=== PATIENT | female | born 1965 | race African-American/Black ===

== ENCOUNTER 2019-02-06 18:59 | Inpatient (IN) | payer OTHER ==
[~2019-02-06] VITALS: Ht 165.1 cm; Wt 84.9 kg
[2019-02-06] MEDS ORDERED: IV NORMAL SALINE 1000ML BAG 1,000 ML IV ONE (19:30)
[2019-02-06 19:33] LABS: BASO % 0 % (0-3); EOS % 0 % (0-3); HEMATOCRIT 39.2 % (36.0-47.0); HEMOGLOBIN 13.2 g/dL (12.0-15.5); LYMPH # 1.8 x10^3/uL (1.0-4.8); LYMPH % 25 % (24-48); MEAN CORPUSCULAR HEMOGLOBIN 32 pg (25-35); MEAN CORPUSCULAR HGB CONC 34 g/dL (31-37); MEAN CORPUSCULAR VOLUME 94 fL (79-100); MONO # 0.5 x10^3/uL (0.0-1.1); MONO % 7 % (0-9); NEUT # 4.8 x10^3uL (1.8-7.7); NEUT % 67 % (31-73); PLATELET COUNT 184 x10^3/uL (140-400); RED BLOOD COUNT 4.16 x10^6/uL (3.50-5.40); WHITE BLOOD COUNT 7.1 x10^3/uL (4.0-11.0)
[2019-02-06 19:59] LABS: ALBUMIN 2.7 g/dL (3.4-5.0); ALBUMIN/GLOBULIN RATIO 0.8 (1.0-1.7); CALCIUM 9.1 mg/dL (8.5-10.1); CREATININE 0.9 mg/dL (0.6-1.0); MAGNESIUM 1.2 mg/dL (1.8-2.4); TOTAL BILIRUBIN 0.7 mg/dL (0.2-1.0); TOTAL PROTEIN 6.2 g/dL (6.4-8.2)
[2019-02-06 20:01] LABS: POTASSIUM 2.8 mmol/L (3.5-5.1)
--- NOTE | 2019-02-06 20:18 | PHYS DOC ---
Past Medical History Past Medical History: No Pertinent History Past Surgical History: , Gastric Bypass, Other Additional Past Surgical Histo: left knee Alcohol Use: Occasionally Drug Use: None Adult General Chief Complaint Chief Complaint: DIZZY/LIGHT HEADED HPI HPI Patient is a 54 year old female who presents with a near syncopal event. Per patient she was at work tonight when she started to get lightheaded, dizzy, and the room was spinning. Patient denies ever completely passing out, but she felt like she was going to. She had one similar episode on Thursday as well. She denies any chest pain or shortness of breath before or after the event. Patient states she currently feels like she is in a daze, but denies any pain. Review of Systems Review of Systems Constitutional: Denies fever or chills Eyes: Denies change in visual acuity, redness HENT: Denies nasal congestion or sore throat Respiratory: Denies cough or shortness of breath Cardiovascular: Denies chest pain or palpitations GI: Denies abdominal pain, nausea, vomiting : Denies dysuria or hematuria Musculoskeletal: Denies back pain or joint pain Integument: Denies rash or skin lesions Neurologic: Reports lightheadedness, dizziness, and generalized weakness. Denies any focal weakness. Complete systems were reviewed and found to be within normal limits, except as documented in this note. Current Medications Current Medications Current Medications Medications (Trade) Dose Ordered Sig/Lupis Start Time Stop Time Status Last Admin Dose Admin Sodium Chloride 1,000 ml @ 1,000 mls/hr 1X ONCE 02/06/19 19:30 02/06/19 20:29 DC 02/06/19 20:10 1,000 MLS/HR Allergies Allergies Allergies Coded Allergies Type Severity Reaction Last Updated Verified Penicillins Allergy Intermediate rash 02/06/19 Yes Physical Exam Physical Exam Constitutional: Well developed, well nourished HENT: Normocephalic, atraumatic Eyes: EOMI, conjunctiva normal Neck: Normal range of motion, no tenderness, supple, no stridor. Cardiovascular:Heart rate regular rhythm, no murmur Lungs & Thorax: Bilateral breath sounds clear to auscultation Abdomen: Soft, no tenderness, Skin: Warm, dry, no erythema, no rash. Back: No tenderness, no CVA tenderness. Extremities: No clubbing, ROM intact, no edema. Neurologic: Alert and oriented X 3, normal motor function, normal sensory function, no focal deficits noted, CN II through XII grossly intact bilaterally Psychologic: Affect normal, mood normal. Current Patient Data Vital Signs Vital Signs Date Time Temp Pulse Resp B/P (MAP) Pulse Ox O2 Delivery O2 Flow Rate FiO2 02/06/19 20:03 72 16 98 02/06/19 18:59 98.2 111/70 (84) Room Air 98.2 Lab Values Laboratory Tests Test 02/06/19 19:10 White Blood Count 7.1 x10^3/uL (4.0-11.0) Red Blood Count 4.16 x10^6/uL (3.50-5.40) Hemoglobin 13.2 g/dL (12.0-15.5) Hematocrit 39.2 % (36.0-47.0) Mean Corpuscular Volume 94 fL (79-100) Mean Corpuscular Hemoglobin 32 pg (25-35) Mean Corpuscular Hemoglobin Concent 34 g/dL (31-37) Red Cell Distribution Width 14.0 % (11.5-14.5) Platelet Count 184 x10^3/uL (140-400) Neutrophils (%) (Auto) 67 % (31-73) Lymphocytes (%) (Auto) 25 % (24-48) Monocytes (%) (Auto) 7 % (0-9) Eosinophils (%) (Auto) 0 % (0-3) Basophils (%) (Auto) 0 % (0-3) Neutrophils # (Auto) 4.8 x10^3uL (1.8-7.7) Lymphocytes # (Auto) 1.8 x10^3/uL (1.0-4.8) Monocytes # (Auto) 0.5 x10^3/uL (0.0-1.1) Eosinophils # (Auto) 0.0 x10^3/uL (0.0-0.7) Basophils # (Auto) 0.0 x10^3/uL (0.0-0.2) Sodium Level 143 mmol/L (136-145) Potassium Level 2.8 mmol/L (3.5-5.1) *L Chloride Level 99 mmol/L (98-107) Carbon Dioxide Level 25 mmol/L (21-32) Anion Gap 19 (6-14) H Blood Urea Nitrogen 9 mg/dL (7-20) Creatinine 0.9 mg/dL (0.6-1.0) Estimated GFR (Cockcroft-Gault) 79.0 BUN/Creatinine Ratio 10 (6-20) Glucose Level 89 mg/dL (70-99) Calcium Level 9.1 mg/dL (8.5-10.1) Magnesium Level 1.2 mg/dL (1.8-2.4) L Total Bilirubin 0.7 mg/dL (0.2-1.0) Aspartate Amino Transferase (AST) 46 U/L (15-37) H Alanine Aminotransferase (ALT) 49 U/L (14-59) Alkaline Phosphatase 90 U/L (46-116) Creatine Kinase 86 U/L (26-192) Creatine Kinase MB (Mass) 0.9 ng/mL (0.0-3.6) Creatine Kinase MB Relative Index 1.0 % (0-4) Troponin I Quantitative < 0.017 ng/mL (0.000-0.055) Total Protein 6.2 g/dL (6.4-8.2) L Albumin 2.7 g/dL (3.4-5.0) L Albumin/Globulin Ratio 0.8 (1.0-1.7) L Laboratory Tests 02/06/19 19:10 Laboratory Tests 02/06/19 19:10 EKG EKG @1908 NSR at 68bpm, NO ST elevation, nonspecific t wave inversion III and aVF Radiology/Procedures Radiology/Procedures [] Course & Med Decision Making Course & Med Decision Making 54 year old female presents status post near syncope while at work. She had a similar event on Thursday. Labs were obtained and posted to chart. Patient was hypokalemic and hypomagnesemic. Potassium and magnesium replaced. UA also noted with ketones. Concern for dehydration. IVF hydration given. Patient requiring admission for further evaluation and treatment. Discussed with Dr. Vallecillo (hospitalist) who is in agreement with admission. Discussed findings and plan with patient and family, who acknowledge understanding and agreement. [] Dragon Disclaimer Dragon Disclaimer This electronic medical record was generated, in whole or in part, using a voice recognition dictation system. Departure Departure Impression: Primary Impression: Near syncope Additional Impressions: Hypomagnesemia Hypokalemia Disposition: 09 ADMITTED INPATIENT Admitting Physician: Angela Vallecillo Condition: STABLE Referrals: CHAR HANNAH MD (PCP) Scripts Magnesium Oxide (MAGNESIUM OXIDE) 400 Mg Tablet 1 TAB PO DAILY for hypomagnesemia, #30 TAB Prov: ROSENDO BUENO MD 02/07/19 Potassium Chloride (POTASSIUM CHLORIDE) 10 Meq Tablet.er 10 MEQ PO DAILY for hypokalemia, #30 TAB Prov: ROSENDO BUENO MD 02/07/19 Problem Qualifiers CHAR CARRASQUILLO DO Feb 06, 2019 20:18
[2019-02-06] MEDS ORDERED: ONDANSETRON PF 4 MG/2 ML VIAL. IV PRN ×3 (20:30→20:45)
[2019-02-06] MEDS ORDERED: POTASSIUM CHLORIDE 20 MEQ TABLET.ER. PO ONE ×2 (20:30→21:00)
[2019-02-06] MEDS ORDERED: MAGNESIUM SULFATE 2GM 50 ML IV ONE (20:30)
[2019-02-06 20:37] LABS: BILIRUBIN,URINE LARGE (NEG); CLARITY,URINE CLEAR; COLOR,URINE AMBER; NITRITE,URINE NEGATIVE (NEG); PROTEIN,URINE 30 mg/dL (NEG-TRACE)
[2019-02-06 20:43] LABS: SQUAMOUS EPITHELIAL CELL,UR MANY /LPF
[2019-02-06 20:44] LABS: BACTERIA,URINE MODERATE /HPF (0-FEW); HYALINE CASTS, URINE FEW /HPF; RBC,URINE 0 /HPF (0-2)
[2019-02-06] MEDS ORDERED: ACETAMINOPHEN 500 MG TABLET PO PRN (20:45)
[2019-02-06] MEDS ORDERED: ZOLPIDEM 5 MG TABLET. PO PRN (20:45)
[2019-02-06] MEDS ORDERED: ACETAMINOPHEN/CODEINE 300/30MG TABLET. PO PRN (20:45)
[2019-02-06] MEDS ORDERED: MORPHINE SULFATE 2 MG/ML VIAL. IV PRN (20:45)
[2019-02-06] MEDS ORDERED: MULT-246 PO (22:34)
[2019-02-06 23:00] VITALS: BP 123/72
[2019-02-07 02:28] LABS: CALCIUM 8.3 mg/dL (8.5-10.1); CREATININE 0.8 mg/dL (0.6-1.0); GFR 90.4; MAGNESIUM 1.9 mg/dL (1.8-2.4); POTASSIUM 3.6 mmol/L (3.5-5.1)
[2019-02-07 03:00] VITALS: BP 121/76
[2019-02-07 07:00] VITALS: BP_SYST 104; BP_SYST 124; BP_DIAS 62
--- NOTE | 2019-02-07 07:24 | EKG ---
[facility] [address] [place] [address] Test Date: 2019-02-06 Test Time: 19:08:53 Pat Name: BIRDIE PORTER Department: Room: [facility] Gender: F Passenger Screener: : 1965 Requested By: CHAR CARRASQUILLO Order Number: [id number] Reading MD: Oc Dias Measurements Intervals Ross Rate: 68 P: 29 SC: 144 QRS: -10 QRSD: 82 T: -11 QT: 476 QTc: 511 Interpretive Statements SINUS RHYTHM LEFT ATRIAL ABNORMALITY LEFTWARD AXIS T ABNORMALITY IN INFERIOR LEADS PROLONGED QT ABNORMAL ECG No previous ECG available for comparison Electronically Signed On 02-09-2019 17:43:57 CDT by Oc Dias
--- NOTE | 2019-02-07 08:57 | PDOC1 ---
History and Physical Date of Admission Date of Admission DATE: 02/07/19 TIME: 08:56 Identification/Chief Complaint Chief Complaint almost passing out Source Source: Chart review, Patient History of Present Illness History of Present Illness Ms. Gar is a 54 year old female who presents with a near syncopal event. Per patient she was at work tonight ([employer]) when she started to get lightheaded, dizzy, and the room was spinning. no LOC, some weakness, she feels much btter this AM, potassium and mag replacements given Echo done, she feels improve,d she has felt like she has had a common cold for a few days, no pain Past Medical History Cardiovascular: No pertinent hx Pulmonary: No pertinent hx GI: No pertinent hx Heme/Onc: No pertinent hx Past Surgical History Past Surgical History: No pertinent history (gastric bypass) Social History ALCOHOL: none Current Medications Current Medications Current Medications Sodium Chloride 1,000 ml @ 1,000 mls/hr 1X ONCE IV Last administered on 02/06/19at 20:10; Start 02/06/19 at 19:30; Stop 02/06/19 at 20:29; Status DC Potassium Chloride (Klor-Con) 40 meq 1X ONCE PO Last administered on 02/06/19at 20:19; Start 02/06/19 at 20:30; Stop 02/06/19 at 20:31; Status DC Magnesium Sulfate 50 ml @ 25 mls/hr 1X ONCE IV Last administered on 02/06/19at 20:19; Start 02/06/19 at 20:30; Stop 02/06/19 at 22:29; Status DC Ondansetron HCl (Zofran) 4 mg PRN Q8HRS PRN IV NAUSEA/VOMITING; Start 02/06/19 at 20:30; Stop 02/06/19 at 20:40; Status DC Ondansetron HCl (Zofran) 4 mg PRN Q6HRS PRN IV NAUSEA/VOMITING; Start 02/06/19 at 20:45; Status UNV Potassium Chloride (Klor-Con) 40 meq 1X ONCE PO Last administered on 02/06/19at 22:28; Start 02/06/19 at 21:00; Stop 02/06/19 at 21:01; Status DC Acetaminophen (Tylenol) 500 mg PRN Q6HRS PRN PO MILD PAIN / TEMP; Start 02/06/19 at 20:45 Acetaminophen/ Codeine Phosphate (Tylenol #3) 1 tab PRN Q6HRS PRN PO MODERATE PAIN; Start 02/06/19 at 20:45 Ondansetron HCl (Zofran) 4 mg PRN Q6HRS PRN IV NAUSEA/VOMITING; Start 02/06/19 at 20:45 Morphine Sulfate (Morphine Sulfate) 2 mg PRN Q2HR PRN IV SEVERE PAIN; Start 02/06/19 at 20:45 Zolpidem Tartrate (Ambien) 5 mg PRN QHS PRN PO INSOMNIA; Start 02/06/19 at 20:45 Potassium Chloride (Klor-Con) 40 meq 1X ONCE PO ; Start 02/07/19 at 09:00; Stop 02/07/19 at 09:01 Active Scripts Active Reported Multi-Vitamin Daily (Multivitamin) 1 Each Tablet 1 Each PO DAILY Allergies Allergies: Coded Allergies: Penicillins (Verified Allergy, Intermediate, rash, 02/06/19) ROS General: YES: Chills; No: Night Sweats, Fatigue, Malaise, Appetite, Other PSYCHOLOGICAL ROS: No: Anxiety, Behavioral Disorder, Concentration difficultie, Decreased libido, Depression, Disorientation, Hallucinations, Hostility, Irritablity, Memory difficulties, Mood Swings, Obsessive thoughts, Physical abuse, Sexual abuse, Sleep disturbances, Suicidal ideation, Other Eyes: No Blurry vision, No Decreased vision, No Double vision, No Dry eyes, No Excessive tearing, No Eye Pain, No Itchy Eyes, No Loss of vision, No Photophobia, No Scotomata, No Uses contacts, No Uses glasses, No Other Respiratory: No: Cough, Hemoptysis, Orthopnea, Pleuritic Pain, Shortness of breath, SOB with excertion, Sputum Changes, Stridor, Tachypnea, Wheezing, Other Cardiovascular: No Chest Pain, No Palpitations, No Orthopnea, No Paroxysmal Noc. Dyspnea, No Edema, No Lt Headedness, No Other Gastrointestinal: No Nausea, No Vomiting, No Abdominal Pain, No Diarrhea, No Constipation, No Melena, No Hematochezia, No Other Genitourinary: No Dysuria, No Frequency, No Incontinence, No Hematuria, No Retention, No Discharge, No Urgency, No Pain, No Flank Pain, No Other, No , No , No , No , No , No , No Musculoskeletal: No Gait Disturbance, No Joint Pain, No Joint Stiffness, No Joint Swelling, No Muscle Pain, No Muscular Weakness, No Pain In:, No Swelling In:, No Other Neurological: Yes Dizziness Physical Exam General: Alert, Oriented X3, No acute distress HEENT: Atraumatic, Mucous membr. moist/pink Lungs: Clear to auscultation Heart: S1S2 Extremities: No clubbing, No cyanosis, No edema Skin: No breakdown Neuro: Normal gait, Normal tone, Sensation intact Psych/Mental Status: Mood NL Vitals Vitals Vital Signs Date Time Temp Pulse Resp B/P (MAP) Pulse Ox O2 Delivery O2 Flow Rate FiO2 02/07/19 07:00 98.6 65 16 124/62 (82) 99 Room Air 98.6 Labs Labs Laboratory Tests Test 02/06/19 19:10 02/06/19 20:27 02/06/19 23:15 02/07/19 02:04 White Blood Count 7.1 x10^3/uL (4.0-11.0) Red Blood Count 4.16 x10^6/uL (3.50-5.40) Hemoglobin 13.2 g/dL (12.0-15.5) Hematocrit 39.2 % (36.0-47.0) Mean Corpuscular Volume 94 fL (79-100) Mean Corpuscular Hemoglobin 32 pg (25-35) Mean Corpuscular Hemoglobin Concent 34 g/dL (31-37) Red Cell Distribution Width 14.0 % (11.5-14.5) Platelet Count 184 x10^3/uL (140-400) Neutrophils (%) (Auto) 67 % (31-73) Lymphocytes (%) (Auto) 25 % (24-48) Monocytes (%) (Auto) 7 % (0-9) Eosinophils (%) (Auto) 0 % (0-3) Basophils (%) (Auto) 0 % (0-3) Neutrophils # (Auto) 4.8 x10^3uL (1.8-7.7) Lymphocytes # (Auto) 1.8 x10^3/uL (1.0-4.8) Monocytes # (Auto) 0.5 x10^3/uL (0.0-1.1) Eosinophils # (Auto) 0.0 x10^3/uL (0.0-0.7) Basophils # (Auto) 0.0 x10^3/uL (0.0-0.2) Sodium Level 143 mmol/L (136-145) 142 mmol/L (136-145) Potassium Level 2.8 mmol/L (3.5-5.1) 3.6 mmol/L (3.5-5.1) Chloride Level 99 mmol/L (98-107) 104 mmol/L (98-107) Carbon Dioxide Level 25 mmol/L (21-32) 24 mmol/L (21-32) Anion Gap 19 (6-14) 14 (6-14) Blood Urea Nitrogen 9 mg/dL (7-20) 11 mg/dL (7-20) Creatinine 0.9 mg/dL (0.6-1.0) 0.8 mg/dL (0.6-1.0) Estimated GFR (Cockcroft-Gault) 79.0 90.4 BUN/Creatinine Ratio 10 (6-20) Glucose Level 89 mg/dL (70-99) 57 mg/dL (70-99) Calcium Level 9.1 mg/dL (8.5-10.1) 8.3 mg/dL (8.5-10.1) Magnesium Level 1.2 mg/dL (1.8-2.4) 1.9 mg/dL (1.8-2.4) Total Bilirubin 0.7 mg/dL (0.2-1.0) Aspartate Amino Transf (AST/SGOT) 46 U/L (15-37) Alanine Aminotransferase (ALT/SGPT) 49 U/L (14-59) Alkaline Phosphatase 90 U/L (46-116) Creatine Kinase 86 U/L (26-192) Creatine Kinase MB (Mass) 0.9 ng/mL (0.0-3.6) Creatine Kinase MB Relative Index 1.0 % (0-4) Troponin I Quantitative < 0.017 ng/mL (0.000-0.055) < 0.017 ng/mL (0.000-0.055) < 0.017 ng/mL (0.000-0.055) Total Protein 6.2 g/dL (6.4-8.2) Albumin 2.7 g/dL (3.4-5.0) Albumin/Globulin Ratio 0.8 (1.0-1.7) Urine Collection Type Unknown Urine Color [place] Urine Clarity Clear Urine pH 6.0 Urine Specific [place] 1.025 Urine Protein 30 mg/dL (NEG-TRACE) Urine Glucose (UA) Negative mg/dL (NEG) Urine Ketones (Stick) >=80 mg/dL (NEG) Urine Blood Negative (NEG) Urine Nitrite Negative (NEG) Urine Bilirubin Large (NEG) Urine Urobilinogen Dipstick 1.0 mg/dL (0.2 mg/dL) Urine Leukocyte Esterase Negative (NEG) Urine RBC 0 /HPF (0-2) Urine WBC 1-4 /HPF (0-4) Urine Squamous Epithelial Cells Many /LPF Urine Bacteria Moderate /HPF (0-FEW) Urine Hyaline Casts Few /HPF Urine Mucus Marked /LPF Laboratory Tests Test 02/06/19 19:10 02/06/19 20:27 02/06/19 23:15 02/07/19 02:04 White Blood Count 7.1 x10^3/uL (4.0-11.0) Red Blood Count 4.16 x10^6/uL (3.50-5.40) Hemoglobin 13.2 g/dL (12.0-15.5) Hematocrit 39.2 % (36.0-47.0) Mean Corpuscular Volume 94 fL (79-100) Mean Corpuscular Hemoglobin 32 pg (25-35) Mean Corpuscular Hemoglobin Concent 34 g/dL (31-37) Red Cell Distribution Width 14.0 % (11.5-14.5) Platelet Count 184 x10^3/uL (140-400) Neutrophils (%) (Auto) 67 % (31-73) Lymphocytes (%) (Auto) 25 % (24-48) Monocytes (%) (Auto) 7 % (0-9) Eosinophils (%) (Auto) 0 % (0-3) Basophils (%) (Auto) 0 % (0-3) Neutrophils # (Auto) 4.8 x10^3uL (1.8-7.7) Lymphocytes # (Auto) 1.8 x10^3/uL (1.0-4.8) Monocytes # (Auto) 0.5 x10^3/uL (0.0-1.1) Eosinophils # (Auto) 0.0 x10^3/uL (0.0-0.7) Basophils # (Auto) 0.0 x10^3/uL (0.0-0.2) Sodium Level 143 mmol/L (136-145) 142 mmol/L (136-145) Potassium Level 2.8 mmol/L (3.5-5.1) 3.6 mmol/L (3.5-5.1) Chloride Level 99 mmol/L (98-107) 104 mmol/L (98-107) Carbon Dioxide Level 25 mmol/L (21-32) 24 mmol/L (21-32) Anion Gap 19 (6-14) 14 (6-14) Blood Urea Nitrogen 9 mg/dL (7-20) 11 mg/dL (7-20) Creatinine 0.9 mg/dL (0.6-1.0) 0.8 mg/dL (0.6-1.0) Estimated GFR (Cockcroft-Gault) 79.0 90.4 BUN/Creatinine Ratio 10 (6-20) Glucose Level 89 mg/dL (70-99) 57 mg/dL (70-99) Calcium Level 9.1 mg/dL (8.5-10.1) 8.3 mg/dL (8.5-10.1) Magnesium Level 1.2 mg/dL (1.8-2.4) 1.9 mg/dL (1.8-2.4) Total Bilirubin 0.7 mg/dL (0.2-1.0) Aspartate Amino Transf (AST/SGOT) 46 U/L (15-37) Alanine Aminotransferase (ALT/SGPT) 49 U/L (14-59) Alkaline Phosphatase 90 U/L (46-116) Creatine Kinase 86 U/L (26-192) Creatine Kinase MB (Mass) 0.9 ng/mL (0.0-3.6) Creatine Kinase MB Relative Index 1.0 % (0-4) Troponin I Quantitative < 0.017 ng/mL (0.000-0.055) < 0.017 ng/mL (0.000-0.055) < 0.017 ng/mL (0.000-0.055) Total Protein 6.2 g/dL (6.4-8.2) Albumin 2.7 g/dL (3.4-5.0) Albumin/Globulin Ratio 0.8 (1.0-1.7) Urine Collection Type Unknown Urine Color [place] Urine Clarity Clear Urine pH 6.0 Urine Specific [place] 1.025 Urine Protein 30 mg/dL (NEG-TRACE) Urine Glucose (UA) Negative mg/dL (NEG) Urine Ketones (Stick) >=80 mg/dL (NEG) Urine Blood Negative (NEG) Urine Nitrite Negative (NEG) Urine Bilirubin Large (NEG) Urine Urobilinogen Dipstick 1.0 mg/dL (0.2 mg/dL) Urine Leukocyte Esterase Negative (NEG) Urine RBC 0 /HPF (0-2) Urine WBC 1-4 /HPF (0-4) Urine Squamous Epithelial Cells Many /LPF Urine Bacteria Moderate /HPF (0-FEW) Urine Hyaline Casts Few /HPF Urine Mucus Marked /LPF VTE Prophylaxis Ordered VTE Prophylaxis Devices: No VTE Pharmacological Prophylaxi: No Assessment/Plan Assessment/Plan presyncope hypomagnesemia hypokalemia weakness obesity, BMI 31 s/p prior gastric bypass, severe malnutrition, serum albumin 2.7 ROSENDO BUENO MD Feb 07, 2019 08:57
[2019-02-07] MEDS ORDERED: POTASSIUM CHLORIDE 20 MEQ TABLET.ER. PO ONE (09:00)
[2019-02-07] MEDS ORDERED: MAGNESIUM SULFATE 2GM 50 ML IV ONE (09:30)
--- NOTE | 2019-02-07 09:47 | CARD ---
MR#: [id number] Date of Study: 02/07/2019 Ordering Physician: QAMAR MAIN, Referring Physician: QAMAR MAIN Tech: Alida Rosales [facility] APPROVED REPORT EXAM: Two-dimensional and M-mode echocardiogram with Doppler and color Doppler. Other Information Quality : Technically LimitedHR: 86bpm Rhythm : NSRTechnically limited study due to body habitus and smoking. INDICATION Syncope 2D DIMENSIONS RVDd4.1 (2.9-3.5cm)Left Atrium(2D)4.1 (1.6-4.0cm) IVSd0.9 (0.7-1.1cm)Aortic Root(2D)2.7 (2.0-3.7cm) LVDd4.6 (3.9-5.9cm)LVOT Diameter2.2 (1.8-2.4cm) PWd1.0 (0.7-1.1cm)LVDs3.3 (2.5-4.0cm) FS (%) 27.3 %SV50.8 ml LVEF(%)55.0 (>50%) M-Mode DIMENSIONS Left Atrium(MM)4.16 (2.5-4.0cm)Aortic Root2.71 (2.2-3.7cm) Aortic Valve AoV Peak Jose.197.5cm/sAoV VTI35.4cm AO Peak GR.15.6mmHgLVOT Peak Jose.129.0cm/s AO Mean GR.9mmHgAVA (VMAX)2.46cm2 GUS (VTI)2.50cm2 Mitral Valve MV E Yfhhwpwe59.7cm/sMV DECEL SECP832nr MV A Mpslqtzm85.2cm/sE/A Ratio1.0 MV A Qbvicuuj508yo Pulmonary Valve PV Peak Cueolyaw64.5cm/s Tricuspid Valve TR P. Fbkhvpwd588kr/sRAP [id number] TR Peak Gr.92mfCkZRKH20alKo LEFT VENTRICLE The left ventricle is normal size. There is normal left ventricular wall thickness. The left ventricu lar systolic function is normal. The Ejection Fraction is 65%. There is normal LV segmental wall tabitha on. RIGHT VENTRICLE The right ventricle is normal size. There is normal right ventricular wall thickness. The right ventr icular systolic function is normal. ATRIA The left atrium is mildly dilated. The right atrium size is normal. The interatrial septum is intact with no evidence for an atrial septal defect or patent foramen ovale as noted on 2-D or Doppler imagi ng. AORTIC VALVE The aortic valve is thickened but opens well. The aortic valve is trileaflet. Doppler and Color Flow revealed no significant aortic regurgitation. There is no significant aortic valvular stenosis. MITRAL VALVE The mitral valve is normal in structure and function. There is no evidence of mitral valve prolapse. There is no mitral valve stenosis. Doppler and Color-flow revealed trace to mild mitral regurgitation . TRICUSPID VALVE The tricuspid valve is normal in structure and function. Doppler and Color Flow revealed trace tricus pid regurgitation. There is mild pulmonary hypertension. The PA pressure was estimated at 36 mmHg. Th ere is no tricuspid valve prolapse or vegetation. There is no tricuspid valve stenosis. PULMONIC VALVE The pulmonic valve is not well visualized. GREAT VESSELS The aortic root is normal in size. The ascending aorta is normal in size. The IVC is normal in size a nd collapses >50% with inspiration. PERICARDIAL EFFUSION There is no evidence of significant pericardial effusion. Critical Notification Critical Value: No <Conclusion> The left ventricular systolic function is normal. The Ejection Fraction is 65%. There is normal LV segmental wall motion. Trace to mild mitral regurgitation. Trace tricuspid regurgitation. There is mild pulmonary hypertension. The PA pressure was estimated at 36 mmHg. There is no evidence of significant pericardial effusion. Signed by : Patrick Villavicencio, Electronically Approved : 02/07/2019 09:46:26
[2019-02-07 11:00] VITALS: BP 105/72
[2019-02-07] MEDS ORDERED: MAGN400T3 PO (12:05)
[2019-02-07] MEDS ORDERED: POTA10TA12 PO (12:05)
--- NOTE | 2019-02-07 12:10 | PDOC3 ---
Discharge Summary Visit Information Date of Admission: Feb 06, 2019 Date of Discharge: Feb 07, 2019 Final Diagnosis presyncope hypomagnesemia hypokalemia weakness obesity, BMI 31 s/p prior gastric bypass, severe malnutrition, serum albumin 2.7 Brief Hospital Course Allergies Allergies Coded Allergies Type Severity Reaction Last Updated Verified Penicillins Allergy Intermediate rash 02/06/19 Yes Vital Signs Vital Signs Date Time Temp Pulse Resp B/P (MAP) Pulse Ox O2 Delivery O2 Flow Rate FiO2 02/07/19 11:00 98.8 74 16 105/72 (83) 98 Room Air 98.8 Lab Results Laboratory Tests Test 02/06/19 19:10 02/06/19 20:27 02/06/19 23:15 02/07/19 02:04 White Blood Count 7.1 x10^3/uL (4.0-11.0) Red Blood Count 4.16 x10^6/uL (3.50-5.40) Hemoglobin 13.2 g/dL (12.0-15.5) Hematocrit 39.2 % (36.0-47.0) Mean Corpuscular Volume 94 fL (79-100) Mean Corpuscular Hemoglobin 32 pg (25-35) Mean Corpuscular Hemoglobin Concent 34 g/dL (31-37) Red Cell Distribution Width 14.0 % (11.5-14.5) Platelet Count 184 x10^3/uL (140-400) Neutrophils (%) (Auto) 67 % (31-73) Lymphocytes (%) (Auto) 25 % (24-48) Monocytes (%) (Auto) 7 % (0-9) Eosinophils (%) (Auto) 0 % (0-3) Basophils (%) (Auto) 0 % (0-3) Neutrophils # (Auto) 4.8 x10^3uL (1.8-7.7) Lymphocytes # (Auto) 1.8 x10^3/uL (1.0-4.8) Monocytes # (Auto) 0.5 x10^3/uL (0.0-1.1) Eosinophils # (Auto) 0.0 x10^3/uL (0.0-0.7) Basophils # (Auto) 0.0 x10^3/uL (0.0-0.2) Sodium Level 143 mmol/L (136-145) 142 mmol/L (136-145) Potassium Level 2.8 mmol/L (3.5-5.1) 3.6 mmol/L (3.5-5.1) Chloride Level 99 mmol/L (98-107) 104 mmol/L (98-107) Carbon Dioxide Level 25 mmol/L (21-32) 24 mmol/L (21-32) Anion Gap 19 (6-14) 14 (6-14) Blood Urea Nitrogen 9 mg/dL (7-20) 11 mg/dL (7-20) Creatinine 0.9 mg/dL (0.6-1.0) 0.8 mg/dL (0.6-1.0) Estimated GFR (Cockcroft-Gault) 79.0 90.4 BUN/Creatinine Ratio 10 (6-20) Glucose Level 89 mg/dL (70-99) 57 mg/dL (70-99) Calcium Level 9.1 mg/dL (8.5-10.1) 8.3 mg/dL (8.5-10.1) Magnesium Level 1.2 mg/dL (1.8-2.4) 1.9 mg/dL (1.8-2.4) Total Bilirubin 0.7 mg/dL (0.2-1.0) Aspartate Amino Transf (AST/SGOT) 46 U/L (15-37) Alanine Aminotransferase (ALT/SGPT) 49 U/L (14-59) Alkaline Phosphatase 90 U/L (46-116) Creatine Kinase 86 U/L (26-192) Creatine Kinase MB (Mass) 0.9 ng/mL (0.0-3.6) Creatine Kinase MB Relative Index 1.0 % (0-4) Troponin I Quantitative < 0.017 ng/mL (0.000-0.055) < 0.017 ng/mL (0.000-0.055) < 0.017 ng/mL (0.000-0.055) Total Protein 6.2 g/dL (6.4-8.2) Albumin 2.7 g/dL (3.4-5.0) Albumin/Globulin Ratio 0.8 (1.0-1.7) Urine Collection Type Unknown Urine Color [place] Urine Clarity Clear Urine pH 6.0 Urine Specific [place] 1.025 Urine Protein 30 mg/dL (NEG-TRACE) Urine Glucose (UA) Negative mg/dL (NEG) Urine Ketones (Stick) >=80 mg/dL (NEG) Urine Blood Negative (NEG) Urine Nitrite Negative (NEG) Urine Bilirubin Large (NEG) Urine Urobilinogen Dipstick 1.0 mg/dL (0.2 mg/dL) Urine Leukocyte Esterase Negative (NEG) Urine RBC 0 /HPF (0-2) Urine WBC 1-4 /HPF (0-4) Urine Squamous Epithelial Cells Many /LPF Urine Bacteria Moderate /HPF (0-FEW) Urine Hyaline Casts Few /HPF Urine Mucus Marked /LPF Laboratory Tests Test 02/06/19 19:10 02/06/19 20:27 02/06/19 23:15 02/07/19 02:04 White Blood Count 7.1 x10^3/uL (4.0-11.0) Red Blood Count 4.16 x10^6/uL (3.50-5.40) Hemoglobin 13.2 g/dL (12.0-15.5) Hematocrit 39.2 % (36.0-47.0) Mean Corpuscular Volume 94 fL (79-100) Mean Corpuscular Hemoglobin 32 pg (25-35) Mean Corpuscular Hemoglobin Concent 34 g/dL (31-37) Red Cell Distribution Width 14.0 % (11.5-14.5) Platelet Count 184 x10^3/uL (140-400) Neutrophils (%) (Auto) 67 % (31-73) Lymphocytes (%) (Auto) 25 % (24-48) Monocytes (%) (Auto) 7 % (0-9) Eosinophils (%) (Auto) 0 % (0-3) Basophils (%) (Auto) 0 % (0-3) Neutrophils # (Auto) 4.8 x10^3uL (1.8-7.7) Lymphocytes # (Auto) 1.8 x10^3/uL (1.0-4.8) Monocytes # (Auto) 0.5 x10^3/uL (0.0-1.1) Eosinophils # (Auto) 0.0 x10^3/uL (0.0-0.7) Basophils # (Auto) 0.0 x10^3/uL (0.0-0.2) Sodium Level 143 mmol/L (136-145) 142 mmol/L (136-145) Potassium Level 2.8 mmol/L (3.5-5.1) 3.6 mmol/L (3.5-5.1) Chloride Level 99 mmol/L (98-107) 104 mmol/L (98-107) Carbon Dioxide Level 25 mmol/L (21-32) 24 mmol/L (21-32) Anion Gap 19 (6-14) 14 (6-14) Blood Urea Nitrogen 9 mg/dL (7-20) 11 mg/dL (7-20) Creatinine 0.9 mg/dL (0.6-1.0) 0.8 mg/dL (0.6-1.0) Estimated GFR (Cockcroft-Gault) 79.0 90.4 BUN/Creatinine Ratio 10 (6-20) Glucose Level 89 mg/dL (70-99) 57 mg/dL (70-99) Calcium Level 9.1 mg/dL (8.5-10.1) 8.3 mg/dL (8.5-10.1) Magnesium Level 1.2 mg/dL (1.8-2.4) 1.9 mg/dL (1.8-2.4) Total Bilirubin 0.7 mg/dL (0.2-1.0) Aspartate Amino Transf (AST/SGOT) 46 U/L (15-37) Alanine Aminotransferase (ALT/SGPT) 49 U/L (14-59) Alkaline Phosphatase 90 U/L (46-116) Creatine Kinase 86 U/L (26-192) Creatine Kinase MB (Mass) 0.9 ng/mL (0.0-3.6) Creatine Kinase MB Relative Index 1.0 % (0-4) Troponin I Quantitative < 0.017 ng/mL (0.000-0.055) < 0.017 ng/mL (0.000-0.055) < 0.017 ng/mL (0.000-0.055) Total Protein 6.2 g/dL (6.4-8.2) Albumin 2.7 g/dL (3.4-5.0) Albumin/Globulin Ratio 0.8 (1.0-1.7) Urine Collection Type Unknown Urine Color [place] Urine Clarity Clear Urine pH 6.0 Urine Specific [place] 1.025 Urine Protein 30 mg/dL (NEG-TRACE) Urine Glucose (UA) Negative mg/dL (NEG) Urine Ketones (Stick) >=80 mg/dL (NEG) Urine Blood Negative (NEG) Urine Nitrite Negative (NEG) Urine Bilirubin Large (NEG) Urine Urobilinogen Dipstick 1.0 mg/dL (0.2 mg/dL) Urine Leukocyte Esterase Negative (NEG) Urine RBC 0 /HPF (0-2) Urine WBC 1-4 /HPF (0-4) Urine Squamous Epithelial Cells Many /LPF Urine Bacteria Moderate /HPF (0-FEW) Urine Hyaline Casts Few /HPF Urine Mucus Marked /LPF Brief Hospital Course Ms. Gar is a 54 old female, has had a recent cold, admit from ER< was at work, felt weak and dizzy and lightheaded K+ 2.8, mag 1.2, replacements given, she felt much improved Discharge Information Condition at Discharge: Improved Follow Up: Weeks Disposition/Orders: D/C to Home Scheduled Magnesium Oxide (Magnesium Oxide) 400 Mg Tablet, 1 TAB PO DAILY for hypomagnesemia, #30 Prescribed by: ROSENDO BUENO on 02/07/191204 Multivitamin (Multi-Vitamin Daily) 1 Each Tablet, 1 EACH PO DAILY for vitamin, (Reported) Entered as Reported by: GARRICK TRUJILOL on 02/06/192233 Last Action: New Order on 02/06/192233 by GARRICK TRUJILLO Potassium Chloride (Potassium Chloride) 10 Meq Tablet.er, 10 MEQ PO DAILY for hypokalemia, #30 Prescribed by: ROSENDO BUENO on 02/07/19 1205 Patient Instructions Patient Instructions A/D same day ROSENDO BUENO MD Feb 07, 2019 12:10
[2019-02-07 15:00] VITALS: BP 104/67
--- NOTE | 2019-02-07 17:13 | NUR ---
Discharge Note: BIRDIE PORTER [address] [place] [address] Discharge instructions and discharge home medications reviewed with Patient and a copy given. All questions have been answered and understanding verbalized. The following instructions and handouts were given: Diet, activity, medication list and follow up instructions provided to patient. Discontinued lines and drains: Peripheral IV discontinued and catheter intact. Patient discharged to Home or Self Care with Family Member via [facility]
== END 2019-02-07 16:00 | disposition home or self-care (01) | DRG 640 ==
LOC: ER 18:59 → 6 SOUTH 20:13
PROVIDERS: ADMIT Internal Medicine; ATTEND Internal Medicine
DX: E87.6 Hypokalemia (principal); E43 Unspecified severe protein-calorie malnutrition; R55 Syncope and collapse; E83.42 Hypomagnesemia; E66.9 Obesity, unspecified; Z88.0 Allergy status to penicillin; Z98.84 Bariatric surgery status; Z68.31 Body mass index [BMI] 31.0-31.9, adult; Z98.891 History of uterine scar from previous surgery
CPT/HCPCS: 36415; 80048; 80053; 81001; 82553; 83735; 84484; 85025; 87086; 93005; 93306; 96365; 96366; J3475; J7030; 99285-25